=== PATIENT | female | born 1965 | race Caucasian/White ===

== ENCOUNTER 2016-05-22 07:50 | Emergency (ER) | payer OTHER ==
[~2016-05-22] VITALS: Ht 167.6 cm; Wt 111.1 kg
[2016-05-22 08:05] VITALS: BP 158/95
[2016-05-22] MEDS ORDERED: predniSONE 20 MG TABLET ONE (08:27)
[2016-05-22] MEDS ORDERED: IPRATROPIUM NEB FS 0.5 MG/2.5 ML AMPUL.NEB NEB ONE (08:30)
[2016-05-22] MEDS ORDERED: predniSONE 20 MG TABLET PO ONE (08:30)
[2016-05-22] MEDS ORDERED: ALBUTEROL FS 2.5 MG/3 ML VIAL.NEB NEB ONE (08:30)
[2016-05-22] MEDS ORDERED: ALBUTEROL FS 2.5 MG/3 ML VIAL.NEB ONE (08:38)
[2016-05-22] MEDS ORDERED: IPRATROPIUM NEB FS 0.5 MG/2.5 ML AMPUL.NEB ONE (08:38)
== END 2016-05-22 10:27 | disposition home or self-care (01) ==
LOC: ER 07:54
DX: J45.901 Unspecified asthma with (acute) exacerbation (principal); I10 Essential (primary) hypertension; E11.9 Type 2 diabetes mellitus without complications
CPT/HCPCS: A4606; Z7610

== ENCOUNTER 2016-05-25 11:16 | Emergency (ER) | payer OTHER ==
[~2016-05-25] VITALS: Ht 167.6 cm; Wt 113.4 kg
[2016-05-25] MEDS ORDERED: ALBUTEROL FS 2.5 MG/3 ML VIAL.NEB ONE (11:42)
[2016-05-25] MEDS ORDERED: IPRATROPIUM NEB FS 0.5 MG/2.5 ML AMPUL.NEB ONE (11:43)
[2016-05-25] MEDS ORDERED: ALBUTEROL FS 2.5 MG/3 ML VIAL.NEB NEB ONE (12:00)
[2016-05-25] MEDS ORDERED: IPRATROPIUM NEB FS 0.5 MG/2.5 ML AMPUL.NEB NEB ONE (12:00)
[2016-05-25 12:23] VITALS: BP 128/78
== END 2016-05-25 12:24 | disposition home or self-care (01) ==
LOC: ER 11:26
DX: J40 Bronchitis, not specified as acute or chronic (principal); E11.9 Type 2 diabetes mellitus without complications; I10 Essential (primary) hypertension; J45.909 Unspecified asthma, uncomplicated
CPT/HCPCS: 71010-TC; A4606; Z7610

== ENCOUNTER 2016-12-18 16:19 | Emergency (ER) | payer OTHER ==
[~2016-12-18] VITALS: Ht 167.6 cm; Wt 108.9 kg
[2016-12-18 16:30] VITALS: BP 144/88
== END 2016-12-18 17:14 | disposition home or self-care (01) ==
LOC: ER 16:21
DX: J45.909 Unspecified asthma, uncomplicated (principal); E11.649 Type 2 diabetes mellitus with hypoglycemia without coma; J06.9 Acute upper respiratory infection, unspecified; G43.909 Migraine, unspecified, not intractable, without status migrainosus; I10 Essential (primary) hypertension
CPT/HCPCS: 99281; A4606; Z7610; Z7502

== ENCOUNTER 2017-04-07 17:42 | Emergency (ER) | payer OTHER ==
[~2017-04-07] VITALS: Ht 167.6 cm; Wt 108.4 kg
[2017-04-07 17:52] VITALS: BP 140/63
== END 2017-04-07 18:18 | disposition home or self-care (01) ==
LOC: ER 17:44
DX: J40 Bronchitis, not specified as acute or chronic (principal); I10 Essential (primary) hypertension; J45.909 Unspecified asthma, uncomplicated; E11.9 Type 2 diabetes mellitus without complications; G43.909 Migraine, unspecified, not intractable, without status migrainosus; Z98.51 Tubal ligation status
CPT/HCPCS: 99283; A4606; Z7610

== ENCOUNTER 2017-07-29 16:45 | Emergency (ER) | payer OTHER ==
[~2017-07-29] VITALS: Ht 167.6 cm; Wt 111.1 kg
--- NOTE | 2017-07-29 17:00 | NUR ---
PATIENT TO ED DT NAUSEA, VOMITING, DIARRHEA SINCE 0200AM-- AFEBRILE. VSS
[2017-07-29] MEDS ORDERED: KETOROLAC TROMETHAMINE INJ 30 MG/ML VIAL IV ONE (17:30)
[2017-07-29] MEDS ORDERED: ONDANSETRON HCL/PF 4 MG/2 ML VIAL IVP ONE (17:30)
[2017-07-29] MEDS ORDERED: IV NS 0.9% 1,000 ML BAG IV ONE (17:30)
[2017-07-29] MEDS ORDERED: ONDANSETRON HCL/PF 4 MG/2 ML VIAL ONE (17:44)
[2017-07-29] MEDS ORDERED: KETOROLAC TROMETHAMINE INJ 30 MG/ML VIAL ONE (17:44)
[2017-07-29 17:54] LABS: BASOPHILS # (AUTO) 0.3 /CMM (0.0-0.2); BASOPHILS % (AUTO) 2.2 % (0.0-2.0); EOSINOPHILS % (AUTO) 0.8 % (0.0-6.0); HEMATOCRIT 44 % (33-45); HEMOGLOBIN 14.8 g/dL (11.5-14.8); LYMPHOCYTES # (AUTO) 1.6 /CMM (0.8-4.8); LYMPHOCYTES % (AUTO) 10.2 % (20.0-44.0); MEAN CORPUSCULAR HGB CONC 33 g/dl (31.0-36.0); MEAN CORPUSCULAR VOLUME 87 fL (82-100); MONOCYTES # (AUTO) 0.3 /CMM (0.1-1.30); MONOCYTES % (AUTO) 2.1 % (2.0-12.0); NEUTROPHILS % (AUTO) 84.7 % (43.0-81.0); PLATELET COUNT (AUTO) 255 /CMM (150-450); RDW COEFFICIENT OF VARIATION 12.6 (11.5-15.0); RED BLOOD CELL COUNT(AUTO) 5.08 MIL/uL (4.0-5.2); WHITE BLOOD COUNT (AUTO) 15.3 K/uL (4.3-11.0)
[2017-07-29 18:10] LABS: ALBUMIN 3.5 g/dL (3.4-5.0); BILIRUBIN,DIRECT 0.2 mg/dL (0.0-0.2); BILIRUBIN,TOTAL 0.6 mg/dL (0.2-1.0); CALCIUM, SERUM 9.3 mg/dL (8.5-10.1); CREATININE 0.9 mg/dL (0.6-1.3); POTASSIUM 3.5 mmol/L (3.5-5.1); TOTAL PROTEIN, SERUM 8.3 g/dL (6.4-8.2)
[2017-07-29 19:07] LABS: APPEARANCE,URINE Clear (CLEAR); BILIRUBIN,URINE Negative (NEGATIVE); BLOOD, URINE Negative Ery/uL (NEGATIVE); COLOR,URINE Yellow (YELLOW); KETONES,URINE Negative (NEGATIVE); LEUKOCYTE ESTERASE ,URINE Negative (NEGATIVE); NITRITE, URINE Negative (NEGATIVE); PH,URINE 5.5 (5.0-8.0); PROTEIN,URINE Trace mg/dl (NEGATIVE); UGLUCOSE Negative (NEGATIVE); UROBILINOGEN,URINE 0.2 EU/dL (0.2)
[2017-07-29 19:25] LABS: BACTERIA,URINE Few /HPF (None Seen); RBC,URINE 0-2 /HPF (0-2); SQUAMOUS EPITHELIAL CELL,UR Moderate /HPF (None Seen); URINE AMORPHOUS URATE Few /HPF (None Seen); WBC,URINE 0-2 /HPF (0-3)
[2017-07-29 19:26] LABS: MUCUS,URINE Many /LPF (None Seen)
[2017-07-29 19:32] VITALS: BP 124/80
--- NOTE | 2017-07-29 19:32 | NUR ---
Patient discharged to home in stable condition. Written and verbal after care instructions given. Patient verbalizes understanding of instruction.
== END 2017-07-29 19:41 | disposition home or self-care (01) ==
LOC: ER 16:46
DX: R11.2 Nausea with vomiting, unspecified (principal); R19.7 Diarrhea, unspecified; I10 Essential (primary) hypertension; J45.909 Unspecified asthma, uncomplicated; E11.9 Type 2 diabetes mellitus without complications; G43.909 Migraine, unspecified, not intractable, without status migrainosus; Z98.51 Tubal ligation status; Z90.49 Acquired absence of other specified parts of digestive tract
CPT/HCPCS: 36415; 80048-TC; 80076-TC; 81000-TC; 83690-TC; 84703-TC; 85025-TC; A4606; J1885; J2405; Z7610

== ENCOUNTER 2018-04-27 19:57 | Emergency (ER) | payer OTHER ==
[~2018-04-27] VITALS: Ht 167.6 cm; Wt 108.9 kg
[2018-04-27 20:47] VITALS: BP 136/84
== END 2018-04-27 21:54 | disposition home or self-care (01) ==
LOC: ER 19:57
DX: M79.675 Pain in left toe(s) (principal); E11.9 Type 2 diabetes mellitus without complications; I10 Essential (primary) hypertension; J45.909 Unspecified asthma, uncomplicated; G43.909 Migraine, unspecified, not intractable, without status migrainosus; Z98.51 Tubal ligation status; Z98.890 Other specified postprocedural states
CPT/HCPCS: 99281; A4606; Z7610; Z7502

== ENCOUNTER 2021-11-02 15:39 | Emergency (ER) | payer OTHER ==
[~2021-11-02] VITALS: Ht 167.6 cm; Wt 99.8 kg
[2021-11-02] MEDS ORDERED: MECLIZINE HCL 12.5 MG TABLET PO ONE (16:30)
[2021-11-02] MEDS ORDERED: MECLIZINE HCL 25 MG TABLET ONE (16:35)
--- NOTE | 2021-11-02 16:36 | NUR ---
IV LINE ESTABLISHED ON RAC #20, BLOOD DRAWN AND SENT TO LAB
[2021-11-02 16:54] LABS: BASOPHILS % (AUTO) 0.5 % (0.0-2.0); EOSINOPHILS % (AUTO) 1.7 % (0.0-6.0); HEMATOCRIT 43 % (33-45); HEMOGLOBIN 14.2 g/dL (11.5-14.8); LYMPHOCYTES % (AUTO) 33.6 % (20.0-44.0); MEAN CORPUSCULAR HGB CONC 33 g/dl (31.0-36.0); MEAN CORPUSCULAR VOLUME 86 fL (82-100); MONOCYTES # (AUTO) 0.6 K/uL (0.1-1.30); MONOCYTES % (AUTO) 6.3 % (2.0-12.0); NEUTROPHILS # (AUTO) 5.1 K/uL (1.8-8.9); NEUTROPHILS % (AUTO) 57.9 % (43.0-81.0); PLATELET COUNT (AUTO) 230 K/uL (150-450); RED BLOOD CELL COUNT(AUTO) 5.01 MIL/uL (4.0-5.2); WHITE BLOOD COUNT (AUTO) 8.8 K/uL (4.3-11.0)
--- NOTE | 2021-11-02 16:55 | NUR ---
PT RETURNED FROM RADIOLOGY
[2021-11-02 17:06] LABS: CARBON DIOXIDE 29 mmol/L (21-32); CHLORIDE 103 mmol/L (98-107); CREATININE 0.5 mg/dL (0.6-1.3); GLUCOSE 135 mg/dL (74-106); POTASSIUM 3.3 mmol/L (3.5-5.1); SODIUM SERUM 141 mmol/L (136-145); UREA NITROGEN, BLOOD 12 mg/dL (7-18)
[2021-11-02 17:12] LABS: ALANINE AMINOTRANSFERASE 61 U/L (12-78); ALBUMIN 3.6 g/dL (3.4-5.0); ALKALINE PHOSPHATASE 138 U/L (46-116); ASPARTATE AMINOTRANSFERASE 22 U/L (15-37); BILIRUBIN,DIRECT 0.1 mg/dL (0.0-0.2); BILIRUBIN,TOTAL 0.5 mg/dL (0.2-1.0); TOTAL PROTEIN, SERUM 7.7 g/dL (6.4-8.2)
[2021-11-02] MEDS ORDERED: MECL-159 PO (17:30)
[2021-11-02 17:35] VITALS: BP 142/77
--- NOTE | 2021-11-02 17:36 | NUR ---
IV removed. Catheter intact and site benign. Pressure and 4x4 applied to site. No bleeding noted.
--- NOTE | 2021-11-02 17:41 | NUR ---
Patient discharged to home in stable condition. Written and verbal after care instructions given. Patient verbalizes understanding of instruction.
== END 2021-11-02 17:41 | disposition home or self-care (01) ==
LOC: ER 15:49
DX: H81.10 Benign paroxysmal vertigo, unspecified ear (principal); M79.675 Pain in left toe(s); I10 Essential (primary) hypertension; J45.909 Unspecified asthma, uncomplicated; E11.9 Type 2 diabetes mellitus without complications; G43.909 Migraine, unspecified, not intractable, without status migrainosus; Z79.899 Other long term (current) drug therapy
CPT/HCPCS: 99285; 70450; 71045; 93005; 73660; 85025; 80048; 80076; 84550; 36415; 84484; 85730; J8597

== ENCOUNTER 2022-03-03 09:21 | Emergency (ER) | payer OTHER ==
[~2022-03-03] VITALS: Ht 167.6 cm; Wt 104.8 kg
[~2022-03-03 09:21] MED LIST: MECL-159 PO
--- NOTE | 2022-03-03 09:30 | NUR ---
TO ER BED 4. BIBS C/O HEADACHE, DIZZY SINCE THURSDAY, NAUSEA, 1 EPISODE VOMITING YESTERDAY. TAKING MOTRIN W/ NO RELIEF. ATTACHED TO MONITOR, NO RESP DISTRESS NOTED, AWAITING MD ORDERS.
[2022-03-03] MEDS ORDERED: PROCHLORPERAZINE EDISYLATE 10 MG/2 ML VIAL ONE (09:56)
[2022-03-03] MEDS ORDERED: KETOROLAC TROMETHAMINE 15 MG/ML VIAL ONE (09:56)
[2022-03-03] MEDS ORDERED: PROCHLORPERAZINE EDISYLATE 10 MG/2 ML VIAL IVP ONE (10:00)
[2022-03-03] MEDS ORDERED: KETOROLAC TROMETHAMINE INJ 30 MG/ML VIAL IV ONE (10:00)
[2022-03-03] MEDS ORDERED: IV NS 0.9% 1,000 ML IV ONE (10:00)
--- NOTE | 2022-03-03 11:18 | NUR ---
DR LARA SPEAKING W/ PT
--- NOTE | 2022-03-03 11:34 | NUR ---
IV removed. Catheter intact and site benign. Pressure and 4x4 applied to site. No bleeding noted.
[2022-03-03 11:38] VITALS: BP 143/82
--- NOTE | 2022-03-03 11:38 | NUR ---
Patient discharged to home in stable condition. Written and verbal after care instructions given. Patient verbalizes understanding of instruction.
== END 2022-03-03 11:40 | disposition home or self-care (01) ==
LOC: ER 09:30
DX: G43.909 Migraine, unspecified, not intractable, without status migrainosus (principal); I10 Essential (primary) hypertension; J45.909 Unspecified asthma, uncomplicated; E11.9 Type 2 diabetes mellitus without complications; Z98.890 Other specified postprocedural states
CPT/HCPCS: 99284; 96374; 96361; 96375; J0780; J7030; J1885

== ENCOUNTER 2022-05-25 11:29 | Emergency (ER) | payer OTHER ==
[~2022-05-25] VITALS: Ht 167.6 cm; Wt 102.1 kg
[2022-05-25 11:57] VITALS: BP 160/87
--- NOTE | 2022-05-25 12:28 | NUR ---
Open wound/scrape approximately dollar sized noted on right heel, well defined. Dry. Surrounding tissues pink.
--- NOTE | 2022-05-25 12:30 | NUR ---
Patient discharged to home in stable condition. Written and verbal after care instructions given. Patient verbalizes understanding of instruction.
--- NOTE | 2022-05-25 12:47 | NUR ---
Patient discharged to home in stable condition. Written and verbal after care instructions given. Patient verbalizes understanding of instruction.
== END 2022-05-25 12:47 | disposition home or self-care (01) ==
LOC: ER 11:32
DX: M79.672 Pain in left foot (principal); I10 Essential (primary) hypertension; E11.9 Type 2 diabetes mellitus without complications; J45.909 Unspecified asthma, uncomplicated; G43.909 Migraine, unspecified, not intractable, without status migrainosus

== ENCOUNTER 2023-05-05 12:01 | Emergency (ER) | payer OTHER ==
[~2023-05-05] VITALS: Ht 167.6 cm; Wt 104.8 kg
[~2023-05-05 12:01] MED LIST changes: +IBUP-1955 PO; +SILV20CR13 TP
[2023-05-05 12:53] VITALS: BP 138/77; TEMP 98.4; O2SAT 100
[2023-05-05] MEDS ORDERED: IBUP-1953 PO (14:00)
[2023-05-05] MEDS ORDERED: IBUPROFEN 600 MG TABLET PO ONE (14:00)
[2023-05-05] MEDS ORDERED: IBUPROFEN 600 MG TABLET ONE (14:04)
== END 2023-05-05 14:29 | disposition home or self-care (01) ==
LOC: ER 12:04
DX: S90.121A Contusion of right lesser toe(s) without damage to nail, initial encounter (principal); G43.909 Migraine, unspecified, not intractable, without status migrainosus; J45.909 Unspecified asthma, uncomplicated; I10 Essential (primary) hypertension; E11.9 Type 2 diabetes mellitus without complications; Z98.890 Other specified postprocedural states; Z79.899 Other long term (current) drug therapy; W22.8XXA Striking against or struck by other objects, initial encounter; Y93.89 Activity, other specified; Y92.89 Other specified places as the place of occurrence of the external cause; Y99.8 Other external cause status
CPT/HCPCS: 73660-TC

== ENCOUNTER 2023-06-02 07:29 | Emergency (ER) | payer OTHER ==
[~2023-06-02] VITALS: Ht 167.6 cm; Wt 106.6 kg
[~2023-06-02 07:29] MED LIST changes: +IBUP-1953 PO
[2023-06-02] MEDS ORDERED: PRED20TA PO (07:50)
[2023-06-02 08:05] VITALS: BP 178/86; TEMP 98.4; O2SAT 100
== END 2023-06-02 08:05 | disposition home or self-care (01) ==
LOC: ER 07:35
DX: G51.0 Bell's palsy (principal); I10 Essential (primary) hypertension; J45.909 Unspecified asthma, uncomplicated; E11.9 Type 2 diabetes mellitus without complications; G43.909 Migraine, unspecified, not intractable, without status migrainosus

== ENCOUNTER 2023-06-06 17:03 | Emergency (ER) | payer OTHER ==
[~2023-06-06] VITALS: Ht 167.6 cm; Wt 106.6 kg
[~2023-06-06 17:03] MED LIST changes: +PRED20TA PO
[2023-06-06 17:39] LABS: BASOPHILS # (AUTO) 0.3 K/uL (0.0-0.2); BASOPHILS % (AUTO) 2.2 % (0.0-2.0); EOSINOPHILS # (AUTO) 0.2 K/uL (0.0-0.7); EOSINOPHILS % (AUTO) 1.8 % (0.0-6.0); HEMATOCRIT 44 % (33-45); HEMOGLOBIN 14.7 g/dL (11.5-14.8); LYMPHOCYTES # (AUTO) 3.7 K/uL (0.8-4.8); LYMPHOCYTES % (AUTO) 30.8 % (20.0-44.0); MEAN CORPUSCULAR HEMOGLOBIN 29 PG (26.0-33.0); MEAN CORPUSCULAR HGB CONC 33 g/dl (31.0-36.0); MEAN CORPUSCULAR VOLUME 86 fL (82-100); MONOCYTES # (AUTO) 0.6 K/uL (0.1-1.30); MONOCYTES % (AUTO) 4.8 % (2.0-12.0); NEUTROPHILS # (AUTO) 7.2 K/uL (1.8-8.9); NEUTROPHILS % (AUTO) 60.4 % (43.0-81.0); PLATELET COUNT (AUTO) 264 K/uL (150-450); RED BLOOD CELL COUNT(AUTO) 5.16 MIL/uL (4.0-5.2); RED CELL DISTRIBUTION WIDTH 14.4 % (11.5-15.0)
[2023-06-06 17:52] LABS: CALCIUM, SERUM 9.3 mg/dL (8.5-10.1); CARBON DIOXIDE 28 mmol/L (21-32); CHLORIDE 102 mmol/L (98-107); CREATININE 0.5 mg/dL (0.6-1.3); GLUCOSE 144 mg/dL (74-106); POTASSIUM 3.5 mmol/L (3.5-5.1); SODIUM SERUM 140 mmol/L (136-145); UREA NITROGEN, BLOOD 13 mg/dL (7-18)
[2023-06-06 18:02] LABS: ALANINE AMINOTRANSFERASE 34 U/L (12-78); ALBUMIN 3.4 g/dL (3.4-5.0); ALKALINE PHOSPHATASE 167 U/L (46-116); ASPARTATE AMINOTRANSFERASE 12 U/L (15-37); BILIRUBIN,DIRECT 0.1 mg/dL (0.0-0.2); BILIRUBIN,TOTAL 0.3 mg/dL (0.2-1.0); NT-PRO BNP 21 pg/mL (0-125); TOTAL PROTEIN, SERUM 7.4 g/dL (6.4-8.2)
[2023-06-06 19:09] VITALS: BP 141/84; TEMP 98; O2SAT 94
== END 2023-06-06 19:10 | disposition home or self-care (01) ==
LOC: ER 17:03
DX: R07.89 Other chest pain (principal); G43.909 Migraine, unspecified, not intractable, without status migrainosus; J45.909 Unspecified asthma, uncomplicated; E11.9 Type 2 diabetes mellitus without complications; I10 Essential (primary) hypertension; Z98.890 Other specified postprocedural states; Z79.899 Other long term (current) drug therapy
CPT/HCPCS: 36415; 71045-TC; 80048-TC; 80076-TC; 83880; 84484-TC; 85025-TC

== ENCOUNTER 2024-03-12 14:42 | Emergency (ER) | payer OTHER ==
[~2024-03-12] VITALS: Ht 167.6 cm; Wt 108.9 kg
[2024-03-12] MEDS ORDERED: HYDROCODONE/APAP 5/325MG TABLET ONE (16:02)
[2024-03-12] MEDS ORDERED: IBUPROFEN 600 MG TABLET ONE (16:02)
[2024-03-12] MEDS: IBUPROFEN 600 MG TABLET PO ONE (16:03)
[2024-03-12] MEDS ORDERED: TDAP [DIPH/PERTUSSIS/TET] 0.5 ML VIAL IM ONE (16:03)
[2024-03-12] MEDS: HYDROCODONE/APAP 5/325MG TABLET PO ONE (16:04)
[2024-03-12] MEDS: TDAP [DIPH/PERTUSSIS/TET] 0.5 ML VIAL IM ONE (16:05)
[2024-03-12] MEDS ORDERED: IBUP-1490 PO (17:27)
[2024-03-12 17:33] VITALS: BP 140/82; TEMP 98; O2SAT 96
== END 2024-03-12 17:34 | disposition home or self-care (01) ==
LOC: ER 14:46
DX: S86.912A Strain of unspecified muscle(s) and tendon(s) at lower leg level, left leg, initial encounter (principal); S80.02XA Contusion of left knee, initial encounter; I10 Essential (primary) hypertension; E11.9 Type 2 diabetes mellitus without complications; Z79.52 Long term (current) use of systemic steroids; W01.0XXA Fall on same level from slipping, tripping and stumbling without subsequent striking against object, initial encounter; Y93.89 Activity, other specified; Y92.89 Other specified places as the place of occurrence of the external cause; Y99.8 Other external cause status
CPT/HCPCS: 72170-TC; 73552; 73564-TC; 90715